=== PATIENT | male | born 1965 | race African-American/Black ===

== ENCOUNTER 2018-07-03 12:54 | Emergency (ER) | payer OTHER ==
[~2018-07-03] VITALS: Ht 177.8 cm; Wt 90.8 kg
[~2018-07-03 12:54] MED LIST: BENZ1TAB7 PO; GABA-526 PO; HALO10TA PO; OLAN2.5T28 PO; TRAM50TA PO
[2018-07-03 12:59] VITALS: Ht 177.8 cm; Wt 90.8 kg
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
[2018-07-03] MEDS: OLANZAPINE 5 MG TAB PO ONE ×2 (13:59→17:06)
--- NOTE | 2018-07-03 16:18 | PSY ---
Date/Time of Note Date/Time of Note DATE: 07/03/18 TIME: 16:13 Psychiatric Subjective Eval Consent Pt consented to telemedicine: Yes Subjective Evaluation Patient location: emergency Chief Complaint: suicidal ideation, has plan History of present illness 52 yo homeless disabled male well known to this MD from his frequent ED presentation to [facility]. Pt has hx schizophrenia presents to ED stating he is "going crazy and hates his life". "You know me, I am a cutter". + AH + Dayo agitated, pressured speech, labile. Off his meds.Pt is yelling and using a lot of profanities. Past psychiatric history multiple inpt Hospitalization: Suicidal Attempt(s) Family History denies Medical history Problems Medical Problems: (1) Acute psychosis Status: Acute (2) Auditory hallucinations Status: Acute (3) Suicidal ideation Status: Acute (4) Visual hallucinations Status: Acute Allergies: Coded Allergies: No Known Allergy (Unverified , 07/03/18) Substance Abuse Substance abuse history: Yes Prior substance abuse treatmen: Yes Social History Marital status: single DPA/Conservatorship: No Occupation/Mcfp: homeless Psychiatric Objective Eval Mental Status Examination: Appearance: Disheveled Eye Contact: Good Psychomotor Activity: Agitated Behavior: Agitated Speech: Pressured AFFECT: Libile Mood: Irritable Though Process: Tangential Thought Content: Hallucinations Suicidal: Yes Homicidal: No Orientation: x3 Cognition: Alert Insight: Impared Judgement: Impared Laboratory Results Laboratory Tests Test 07/03/18 13:32 White Blood Count 7.5 10^3/ul Red Blood Count 5.05 10^6/ul Hemoglobin 14.1 g/dl Hematocrit 42.1 % Mean Corpuscular Volume 83.4 fl Mean Corpuscular Hemoglobin 27.9 pg Mean Corpuscular Hemoglobin Concent 33.5 g/dl Red Cell Distribution Width 14.2 % Platelet Count 274 10^3/UL Mean Platelet Volume 8.1 fl Immature Granulocytes % 0.300 % Neutrophils % 56.9 % Lymphocytes % 31.4 % Monocytes % 10.1 % Eosinophils % 0.8 % Basophils % 0.5 % Nucleated Red Blood Cells % 0.0 /100WBC Immature Granulocytes # 0.020 10^3/ul Neutrophils # 4.3 10^3/ul Lymphocytes # 2.4 10^3/ul Monocytes # 0.8 10^3/ul Eosinophils # 0.1 10^3/ul Basophils # 0.0 10^3/ul Nucleated Red Blood Cells # 0.0 10^3/ul Sodium Level 140 mmol/L Potassium Level 4.2 mmol/L Chloride Level 98 mmol/L Carbon Dioxide Level 33 mmol/L Anion Gap 9 Blood Urea Nitrogen 17 mg/dl Creatinine 0.69 mg/dl Est Glomerular Filtrat Rate mL/min > 60 mL/min Glucose Level 87 mg/dl Calcium Level 9.5 mg/dl Total Bilirubin 0.7 mg/dl Direct Bilirubin 0.00 mg/dl Indirect Bilirubin 0.7 mg/dl Aspartate Amino Transf (AST/SGOT) 38 IU/L Alanine Aminotransferase (ALT/SGPT) 31 IU/L Alkaline Phosphatase 93 IU/L Total Protein 8.5 g/dl Albumin 4.7 g/dl Globulin 3.80 g/dl Albumin/Globulin Ratio 1.23 Salicylates Level < 1.0 mg/dl Acetaminophen Level < 10.0 ug/ml Ethyl Alcohol Level < 10.0 mg/dl Assessment and Plan Assessment/Diagnosis Diagnosis PARANOID SCHIZOPHRENIA Recommendation/Plan Medication Management HALDOL 5 MG PO BID; FOR AGITATION: ZYPREXA 10M G+ aTIVAN 2 MG + BENADRYL 50 MG PRN Q 12 HRS Multiple antipsychotics: Yes Discharge Disposition: Psychiatric inpatient Legal Status: Place involuntary hold EN IBARRA MD July 03, 2018 16:18
[2018-07-03] MEDS ORDERED: OLANZAPINE 10 MG VIAL IM ONE (20:00)
[2018-07-03] MEDS ORDERED: DIPHENHYDRAMINE 50 MG INJ IM ONE (20:00)
[2018-07-03] MEDS ORDERED: LORAZEPAM 2 MG INJ IM ONE (20:00)
[2018-07-03] MEDS: HALOPERIDOL 5 MG TAB PO SCH (21:00)
--- NOTE | 2018-07-04 06:19 | EN ---
Date/Time of Note Date/Time of Note DATE: 07/04/18 TIME: 06:18 ER Progress Note I assumed care at 6 AM. This is a 52-year-old male who is boarding in the emergency department pending psychiatric evaluation. Patient presented with high risk psychiatric symptoms. Medical screening examination was reviewed and noted to be normal including normal lab work. Initial psychiatric evaluation from the tele-psychiatrist was reviewed indicating a need for hospitalization. Report overnight is that the patient had no significant events. He has been hemodynamically stable and remains "medically clear." Currently, vital signs are normal reevaluation of the patient demonstrates a well-developed well-nourished gentleman in no significant distress. Psychiatrically, patient appears to be much more calm and sleeping. Plan: Patient will continue under observation and will be reevaluated during observation stay. Psychiatric placement is pending at this time. NALLELY RM July 04, 2018 06:19
[2018-07-04] MEDS: HALOPERIDOL 5 MG TAB PO SCH ×2 (08:52→23:06)
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
[2018-07-05] MEDS: HALOPERIDOL 5 MG TAB PO SCH ×2 (09:00→21:04)
[2018-07-05] MEDS ORDERED: BENZTROPINE 1 MG TAB PO ONE (21:00)
[2018-07-06 02:48] VITALS: BP 111/59; PULSE 76; RESP 18
[2018-07-06] MEDS ORDERED: BENZTROPINE 1 MG TAB PO ONE ×2 (08:00→12:00)
[2018-07-06] MEDS ORDERED: CHLORPROMAZINE 25 MG INJ IM ONE (08:30)
[2018-07-06] MEDS ORDERED: OLANZAPINE 5 MG TAB PO ONE (08:30)
[2018-07-06] MEDS: HALOPERIDOL 5 MG TAB PO SCH ×2 (08:44→20:14)
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
[2018-07-07] MEDS ORDERED: LORAZEPAM 2 MG INJ IM ONE ×3 (00:30→07:00)
[2018-07-07] MEDS ORDERED: LORAZEPAM 2 MG INJ ONE ×3 (04:45→06:48)
[2018-07-07] MEDS ORDERED: DIPHENHYDRAMINE 50 MG INJ ONE (04:45)
[2018-07-07] MEDS ORDERED: HALOPERIDOL 5 MG INJ ONE (04:45)
[2018-07-07] MEDS ORDERED: DIPHENHYDRAMINE 50 MG INJ IM ONE (05:00)
[2018-07-07] MEDS ORDERED: HALOPERIDOL 5 MG INJ IM ONE (05:00)
--- NOTE | 2018-07-07 07:32 | EN ---
Date/Time of Note Date/Time of Note DATE: 07/07/18 TIME: 07:27 ER Progress Note SUBJECTIVE HPI: This patient was signed out to me at 12 AM on July 07, 2018 pending transfer to a psychiatric facility. Briefly, this is a 52-year-old male who is presenting with acute psychosis. Family history: As indicated on the initial history and physical of this ER visit OBJECTIVE VS: Reviewed Const: No apparent distress, well-developed, well-nourished Head: Normocephalic, Atraumatic Eyes: Normal Conjunctiva. ENT: Normal External Ears and Mouth. Neck: No meningismus. Resp: Symmetric chest wall blackwell, no audible wheezes Cardio: Regular rate and rhythm Abd: Non distended Skin: No petechiae or rashes Ext: No cyanosis, or edema Neur: Awake and alert. No facial droop. Normal strength and sensation. Psych: Significant agitation, aggressive behavior, threatening and belligerent ASSESSMENT Acute psychosis PLAN The patient was previously medically cleared for psychiatric placement. The patient was evaluated by psychiatry previously and it was felt that the patient required inpatient psychiatric admission. The patient was placed on a 5150 hold by the PET team. The patient is currently pending transfer to a psychiatric facility. Unfortunately, the patient became significantly aggressive and agitated, threatening the staff. The patient ultimately did require physical and chemical restraint while under my care. The patient will be signed out to the oncoming physician. OBSERVATION NOTE Time: 7 hours Family Hx: No Diabetes Evaluation: Multiple exams showed improving symptoms and no evidence of worsening psychosis INITIATION OF RESTRAINT Time of evaluation: 044 on July 07, 2018 This patient was placed in Seclusion/Restraint due to danger to self and/or danger to others. Less restrictive measures of verbal interventions/reminders, security standby, medications offered/given, nursing interventions based on Face to Face assessment findings, alteration to physical environment/reduce stimuli were attempted prior to restraint and/or seclusion. I performed a face to face assessment within one hour of the restraint/seclusion Criteria for Removal of Restraints: Resolution of the conditions/behavior which prompted restraint or response to less restrictive measures LAMONTE FUENTES MD July 07, 2018 07:32
== END 2018-07-07 17:48 | disposition left against medical advice (07) ==
LOC: EDBD 12:54 → E/R 12:54 → MERGE 12:54 → E/R 07-07 17:48
DX: F23 Brief psychotic disorder (principal)
CPT/HCPCS: 80053; 80307; 81003; 85025; 96372; J1200; J1630; J2060; Z7502; Z7610